=== PATIENT | male | born 1950 | race Caucasian/White ===

== ENCOUNTER 2021-01-09 19:59 | Emergency (ER) | payer MEDICARE, OTHER ==
[2021-01-09] MEDS ORDERED: Pepcid 20 MG VIAL IV ONE ×2 (20:21→20:24)
[2021-01-09] MEDS ORDERED: solu-MEDROL 125 MG, Sterile H2O 10 ml 2 ML IV ONE ×2 (20:21)
[2021-01-09] MEDS ORDERED: DUONEB 0.5-3 MG/3 ml Neb IH ONE ×2 (20:21→20:52)
[2021-01-09] MEDS ORDERED: BENADRYL 50 MG/ML IV ONE (20:21)
--- NOTE | 2021-01-09 20:23 | ERPHSYRPT ---
- History of Present Illness Time Seen by Provider: 01/09/21 20:16 Source: patient, family Exam Limitations: no limitations Physician History: pt was stung about 30 times by yellow jackets- no known allergy but previously stung years ago had headache then with it. Some faint wheezes on exam - no urticaria. Has COPD per pt. Prior CAD , but no CP at this time- some shortness of breath similar to underlying COPD. Pharynx and airway clear , swallowing OK , no stridor. pt reveals known afib previously, unable to jani most blood thinners including ASA , but now on Plavix. Timing/Duration: today Severity: moderate Associated Symptoms: shortness of breath Allergies/Adverse Reactions: morphine Allergy (Verified 01/09/21 20:22) spinach Allergy (Verified 01/09/21 20:22) Difficulty Breathing azithromycin Adverse Reaction (Verified 01/09/21 20:22) Diarrhea - Review of Systems Constitutional: No Fever, No Chills Eyes: No Symptoms Ears, Nose, & Throat: No Symptoms Respiratory: Dyspnea, Wheezing, No Cough, No Stridor Cardiac: No Chest Pain, No Edema, No Syncope Abdominal/Gastrointestinal: No Abdominal Pain, No Nausea, No Vomiting, No Diarrhea Genitourinary Symptoms: No Dysuria Musculoskeletal: No Back Pain, No Neck Pain Skin: Other (30 stings chest back arms face), No Rash Neurological: No Dizziness, No Focal Weakness, No Sensory Changes Psychological: No Symptoms Endocrine: No Symptoms Hematologic/Lymphatic: No Symptoms Immunological/Allergic: No Symptoms All Other Systems: Reviewed and Negative - Past Medical History Pertinent Past Medical History: Yes Cardiac History: Coronary Artery Disease Respiratory History: COPD - Nursing Vital Signs Nursing Vital Signs: Initial Vital Signs Temperature 97.4 F 01/09/21 20:38 Pulse Rate 115 H 01/09/21 20:38 Respiratory Rate 20 01/09/21 20:38 Blood Pressure 120/64 01/09/21 20:38 O2 Sat by Pulse Oximetry 89 L 01/09/21 20:38 Pain Scale Pain Intensity 4 - Physical Exam General Appearance: no apparent distress, alert Eye Exam: PERRL/EOMI, eyes nml inspection Ears, Nose, Throat Exam: normal ENT inspection, TMs normal, pharynx normal, moist mucous membranes Neck Exam: normal inspection, non-tender, supple, full range of motion Respiratory Exam: airway intact, wheezing, No respiratory distress Cardiovascular Exam: regular rate/rhythm, normal heart sounds, normal peripheral pulses Gastrointestinal/Abdomen Exam: soft, normal bowel sounds, No tenderness, No mass Rectal Exam: deferred Back Exam: normal inspection, normal range of motion, No CVA tenderness, No vertebral tenderness Extremity Exam: normal inspection, normal range of motion, pelvis stable Neurologic Exam: alert, oriented x 3, cooperative, normal mood/affect, nml cerebellar function, nml station & gait, sensation nml, No motor deficits Skin Exam: normal color, warm, dry, other (multiple stings- no stingers on scraping), No rash Lymphatic Exam: No adenopathy - Course Nursing assessment & vital signs reviewed: Yes EKG Interpreted by Me: A-fib, Non-specific ST Changes - Radiology Exams Chest X-ray Interpretation: Reviewed by me, No Infiltrates (per rad review old cardiomeg no CHF) Ordered Tests: Active Orders 24 hr Category Date Time Status Compress Machine Operator STAT Care 01/09/21 20:30 Active EKG-ER Only STAT Care 01/09/21 20:29 Active IV Insertion STAT Care 01/09/21 20:21 Active Oxygen-ED Only Nasal Cannula 2 lpm Care 01/09/21 20:29 Active Pulse Oximetry (ED) STAT Care 01/09/21 20:21 Active CHEST 1 VIEW (PORTABLE) Stat Exams 01/09/21 20:30 Completed CBC W DIFF Stat Lab 01/09/21 20:50 Completed CK-Creatinine Phosphokinase Stat Lab 01/09/21 20:50 Completed CMP Stat Lab 01/09/21 20:50 Completed NT PRO BNP Stat Lab 01/09/21 20:50 Completed TROPONIN Q3H Lab 01/09/21 20:50 Completed TROPONIN Q3H Lab 01/09/21 23:30 Ordered TROPONIN Q3H Lab 01/10/21 02:30 Ordered TROPONIN Q3H Lab 01/10/21 05:30 Ordered TROPONIN Q3H Lab 01/10/21 08:30 Ordered Respiratory Therapy Assessment DAILY RT 01/09/21 20:57 Active Medication Summary Generic Name Dose Route Start Last Admin Trade Name Freq PRN Reason Stop Dose Admin Sodium Chloride 1,000 mls @ 100 mls/hr 01/09/21 20:30 01/09/21 20:26 Sodium Chloride 0.9% 1000 Ml IV 02/08/21 20:29 100 mls/hr .Q10H BRUNILDA Administration Discontinued Medications Generic Name Dose Route Start Last Admin Trade Name Amairani PRN Reason Stop Dose Admin Albuterol/Ipratropium 3 ml 01/09/21 20:21 01/09/21 20:54 Duoneb 0.5-3 Mg/3 Ml Neb IH 01/09/21 20:22 3 ml STAT ONE Administration Albuterol/Ipratropium Confirm 01/09/21 20:52 Duoneb 0.5-3 Mg/3 Ml Neb Administered 01/09/21 20:53 Dose 3 ml IH .STK-MED ONE Methylprednisolone Sodium 0 mg 01/09/21 20:21 01/09/21 20:26 Succinate 125 mg/ Sterile IV 01/09/21 20:22 125 mg Water 2 ml STAT ONE Administration Diphenhydramine HCl 25 mg 01/09/21 20:21 01/09/21 20:26 Benadryl 50 Mg/Ml IV 01/09/21 20:22 25 mg STAT ONE Administration Diphenhydramine HCl Confirm 01/09/21 20:24 Benadryl 50 Mg/Ml Administered 01/09/21 20:25 Dose 50 mg .ROUTE .STK-MED ONE Famotidine 20 mg 01/09/21 20:21 01/09/21 20:26 Pepcid 20 Mg Vial IV 01/09/21 20:22 20 mg STAT ONE Administration Famotidine Confirm 01/09/21 20:24 Pepcid 20 Mg Vial Administered 01/09/21 20:25 Dose 20 mg IV .STK-MED ONE Methylprednisolone Sodium Succinate Confirm 01/09/21 20:25 Solu-Medrol Administered 01/09/21 20:26 Dose 125 mg .ROUTE .STK-MED ONE Sterile Water Confirm 01/09/21 20:25 Sterile H2o 10 Ml Administered 01/09/21 20:26 Dose 10 ml IJ .STK-MED ONE Lab/Rad Data: Laboratory Result Diagrams 01/09/21 20:50 01/09/21 20:50 Laboratory Results 01/09/21 01/09/21 01/09/21 Range/Units 20:50 20:50 20:50 WBC 11.1 H (4.0-10.5) K/mm3 RBC 5.87 H (4.1-5.6) M/mm3 Hgb 16.4 (12.5-18.0) gm/dl Hct 49.2 (42-50) % MCV 83.8 (78-100) fl MCH 27.9 (26-32) pg MCHC 33.3 (32-36) g/dl RDW 13.9 (11.5-14.0) % Plt Count 271 (150-450) K/mm3 MPV 9.7 (7.5-11.0) fl Gran % 60.5 (36.0-66.0) % Eos # (Auto) 0.08 (0-0.5) Absolute Lymphs (auto) 3.58 (1.0-4.6) Absolute Monos (auto) 0.70 (0.0-1.3) Lymphocytes % 32.1 (24.0-44.0) % Monocytes % 6.3 (0.0-12.0) % Eosinophils % 0.7 (0.00-5.0) % Basophils % 0.4 (0.0-0.4) % Absolute Granulocytes 6.73 (1.4-6.9) Basophils # 0.05 (0-0.4) Sodium 141 (137-145) mmol/L Potassium 4.3 (3.5-5.1) mmol/L Chloride 103 (98-107) mmol/L Carbon Dioxide 24 (22-30) mmol/L Anion Gap 18.1 H (5-15) MEQ/L BUN 19 (9-20) mg/dL Creatinine 1.24 (0.66-1.25) mg/dL Estimated GFR > 60.0 ML/MIN Glucose 223 H (74-106) mg/dL Calcium 9.8 (8.4-10.2) mg/dL Total Bilirubin 0.60 (0.2-1.3) mg/dL AST 20 (17-59) U/L ALT 19 (0-50) U/L Alkaline Phosphatase 74 (38-126) U/L Creatine Kinase 32 L (55-170) U/L Troponin I < 0.012 (0.000-0.034) ng/mL NT-Pro-B Natriuret Pep 645 (0-900) pg/mL Serum Total Protein 7.2 (6.3-8.2) g/dL Albumin 4.3 (3.5-5.0) g/dL Slides for Path Review YES - Progress Progress: improved, re-examined Progress Note: 01/09/21 23:50 pt symptoms resolved after Tx and now wishes to go home- with O2 sat 98% CHest now clear. No Cp or sobreath. pt advised that there could still be delayed effects, but he prefers to not have furhter obs in hosp or ER and will return if further symptoms. Counseled pt/family regarding: lab results, diagnosis, need for follow-up, rad results - Departure Departure Disposition: Home Clinical Impression: yellow jacket envenomations- multiple Condition: Good Critical Care Time: No Referrals: ARLEY ROSA MD [Primary Care Provider] - Instructions: Insect Bites and Stings (DC) Additional Instructions: followup with your this week to see if any meds need adjusting, keep an eye on your blood sugar as the steroids may affect it, return meantime if symptoms recur or any other concerns. Prescriptions: Methylprednisolone Packet [Medrol Dosepack] 4 mg PO UD #30 packet
[2021-01-09] MEDS ORDERED: BENADRYL 50 MG/ML ONE (20:24)
[2021-01-09] MEDS ORDERED: Sodium Chloride 0.9% 1000 ML 1,000 ML ONE (20:25)
[2021-01-09] MEDS ORDERED: Sterile H2O 10 ml IJ ONE (20:25)
[2021-01-09] MEDS ORDERED: solu-MEDROL ONE (20:25)
[2021-01-09] MEDS ORDERED: Sodium Chloride 0.9% 1000 ML 1,000 ML IV SCH (20:30)
[2021-01-09 20:53] LABS: Absolute Neutrophil Ct (ANC) 6.73 (1.4-6.9); BASOPHIL % 0.4 % (0.0-0.4); Basophil (Absolute #) 0.05 (0-0.4); Eosinophil % 0.7 % (0.00-5.0); Eosinophil (Absolute #) 0.08 (0-0.5); Hematocrit 49.2 % (42-50); Hemoglobin 16.4 gm/dl (12.5-18.0); Lymphocyte (Absolute #) 3.58 (1.0-4.6); Lymphocytes % 32.1 % (24.0-44.0); Mean Cell Volume 83.8 fl (78-100); Mean Corpuscular Hemoglobin 27.9 pg (26-32); Mean Corpuscular Hgb Concent. 33.3 g/dl (32-36); Mean Platelet Volume 9.7 fl (7.5-11.0); Monocytes % 6.3 % (0.0-12.0); Neutrophil % 60.5 % (36.0-66.0); Platelet Count 271 K/mm3 (150-450); Red Blood Count 5.87 M/mm3 (4.1-5.6); Red Cell Distribution Width 13.9 % (11.5-14.0); White Blood Count 11.1 K/mm3 (4.0-10.5)
[2021-01-09 21:17] LABS: ALBUMIN 4.3 g/dL (3.5-5.0); ALKALINE PHOSPHATASE 74 U/L (38-126); ANION GAP 18.1 MEQ/L (5-15); BLOOD UREA NITROGEN 19 mg/dL (9-20); CHLORIDE 103 mmol/L (98-107); CK-Creatinine Phosphokinase 32 U/L (55-170); Calcium 9.8 mg/dL (8.4-10.2); Carbon Dioxide 24 mmol/L (22-30); Creatinine 1 1.24 mg/dL (0.66-1.25); EST GLOMERULAR FILTRATION RATE > 60.0 ML/MIN; Glucose 223 mg/dL (74-106); NT PRO BNP 645 pg/mL (0-900); Potassium 4.3 mmol/L (3.5-5.1); SGOT/AST 20 U/L (17-59); SGPT/ALT 19 U/L (0-50); SODIUM 141 mmol/L (137-145); Total Protein 7.2 g/dL (6.3-8.2)
--- NOTE | 2021-01-09 21:40 | XRAY ---
Indication: Low oxygenation after bee sting. Comparison: None Portable chest clear. Heart enlarged with CABG surgery. Bony thorax intact with mild degenerative changes. Impression: Cardiomegaly. Negative for acute pneumonic process or CHF.
[2021-01-09 22:22] LABS: Slide Review 1 YES
[2021-01-10 00:09] VITALS: BP 127/82; PULSE 118; O2SAT 98
== END 2021-01-10 00:09 | disposition home or self-care (01) ==
LOC: ED 19:59
DX: T63.441A Toxic effect of venom of bees, accidental (unintentional), initial encounter (principal); Z91.038 Other insect allergy status; I25.10 Atherosclerotic heart disease of native coronary artery without angina pectoris
CPT/HCPCS: 36000; 36415; 71045; 80053; 82550; 83880; 84484; 85025; 93005; 93041; 94640; 94760; 96374; 96375; 99284; J1200; J2930; A9270-GY